=== PATIENT | male | born 2000 | race Caucasian/White ===

== ENCOUNTER 2022-03-28 16:48 | Emergency (ER) | payer OTHER ==
[2022-03-28 18:22] VITALS: BP 121/68
== END 2022-03-28 18:24 | disposition home or self-care (01) ==
LOC: ED 16:48
DX: T24.111A Burn of first degree of right thigh, initial encounter (principal); Z28.310 Unvaccinated for COVID-19; X10.2XXA Contact with fats and cooking oils, initial encounter; Y92.59 Other trade areas as the place of occurrence of the external cause; Y99.0 Civilian activity done for income or pay